=== PATIENT | female | born 1995 ===

== ENCOUNTER 2024-11-30 09:30 | Inpatient (IN) | payer OTHER ==
[~2024-11-30] VITALS: Ht 154.9 cm; Wt 68.9 kg
[2024-11-30] MEDS ORDERED: ZYRTEC10 M3 PO (12:08)
[2024-11-30] MEDS ORDERED: PEPCID AC20 MG (12:08)
[2024-11-30] MEDS ORDERED: VITAMIN D (12:08)
[2024-11-30 12:09] LABS: PH,URINE 5.5 (5.0-8.0); URINE APPEARANCE Cloudy; URINE BILIRRUBIN Negative (NEGATIVE); URINE BLOOD Large; URINE COLOR Yellow; URINE GLUCOSE Negative (NEGATIVE); URINE KETONE Negative (NEGATIVE); URINE LEUKOCYTE Negative; URINE NITRATE Negative; URINE PROTEIN 30 (NEGATIVE)
[2024-11-30 12:10] VITALS: BP 107/73
[2024-11-30 12:10] LABS: HEMATOCRIT 38.4 % (36.0-45.00); HEMOGLOBIN 12.7 g/dL (12.0-15.00); MEAN CELL VOLUME 75.7 fL (80.00-100.00); MEAN CORPUSCULAR HEMOGLOBIN 25.1 pg (27.00-32.0); MEAN CORPUSCULAR HGB CONC 33.2 g/dl (32.0-36.0); PLATELET COUNT 206 K/uL (150-450); RED BLOOD COUNT 5.07 M/uL (4.00-6.00); RED CELL DISTRIBUTION WIDTH 14.6 % (11.5-14.5)
[2024-11-30 12:13] VITALS: BP 105/73
[2024-11-30 12:15] LABS: URINE RBC 215.3 uL (0.0-20.8); URINE WBC 50.5 uL (0.0-23.2)
[2024-11-30 12:22] LABS: INR 1.03; PARTIAL THROMBOPLASTIN TIME 30.2 SECONDS (22.0-34.0); PROTHROMBIN TIME 11.2 SECONDS (9.0-11.5)
[2024-11-30 12:45] LABS: ALBUMIN 3.9 gm/dL (3.4-5.0); BILIRUBIN TOTAL 0.27 mg/dL (0.3-1.2); CREATININE SERUM 0.61 mg/dL (0.55-1.02); GFR 115.16; GLOBULINA 3.6 G/DL (2.4-3.5); POTASSIUM 3.76 mEq/L (3.5-5.1); TOTAL PROTEIN 7.5 gm/dL (6.4-8.2)
[2024-11-30 13:02] LABS: URINE BACTERIA > 9821.5 uL (0.0-1933); URINE EPITHELIAL CELLS > 201.7 uL (0.0-38.8)
[2024-12-04] MEDS ORDERED: POVIDONE-IODINE 118 ML BOTT TOP ONE (13:19)
[2024-12-04] MEDS ORDERED: CEFAZOLIN SODIUM 1,000 MG VIAL ONE (13:19)
[2024-12-04] MEDS ORDERED: CHLORHEXIDINE GLUCONATE 120 ML BOTTLE TOP ONE (13:20)
[2024-12-04] MEDS ORDERED: SUGAMMADEX SODIUM 200 MG/2 ML VIAL IV ONE (16:01)
[2024-12-04] MEDS ORDERED: MEPERIDINE HCL 25 MG/ML AMPUL IV ONE (16:35)
[2024-12-04] MEDS ORDERED: MEPERIDINE HCL/PF 50 MG/ML VIAL IM PRN (16:45)
[2024-12-04] MEDS ORDERED: RINGERS SOLUTION,LACTATED 1,000 ML IV SCH (16:45)
[2024-12-04] MEDS ORDERED: PROMETHAZINE HCL 50 MG/ML AMPUL IM PRN (16:45)
[2024-12-04] MEDS ORDERED: KETOROLAC TROMETHAMINE 30 MG VIAL IV SCH (17:29)
[2024-12-04] MEDS ORDERED: KETOROLAC TROMETHAMINE 30 MG VIAL ONE (17:41)
[2024-12-04] MEDS ORDERED: PROMETHAZINE HCL 50 MG/ML AMPUL IM ONE (18:12)
[2024-12-04 19:10] VITALS: BP 107/73
[2024-12-05 01:00] VITALS: BP 104/71
[2024-12-05 05:00] VITALS: BP 106/68
[2024-12-05 07:20] LABS: HEMOGLOBIN 11.6 g/dL (12.0-15.00); MEAN CORPUSCULAR HEMOGLOBIN 24.9 pg (27.00-32.0); MEAN CORPUSCULAR HGB CONC 33.3 g/dl (32.0-36.0); PLATELET COUNT 245 K/uL (150-450); RED BLOOD COUNT 4.67 M/uL (4.00-6.00); RED CELL DISTRIBUTION WIDTH 14.7 % (11.5-14.5)
[2024-12-05 08:37] VITALS: BP 103/71; O2SAT 98
[2024-12-05] MEDS ORDERED: OxyCODONE HCL/APAP UD (PERCOCET) PO PRN (10:00)
[2024-12-05 13:39] VITALS: BP 105/70
[2024-12-05 16:00] VITALS: BP 115/74
== END 2024-12-05 06:57 | disposition home or self-care (01) | DRG 743 ==
LOC: O/R 12-04 07:31 → OB/GYN 12-04 07:31 → SURH 12-04 09:30 → OB/GYN 12-04 16:53
PROVIDERS: ADMIT Obstetrics & Gynecology; ATTEND Obstetrics & Gynecology
PROC: 0UT70ZZ Resection of Bilateral Fallopian Tubes, Open Approach (ICD-10-PCS; 2024-12-04)
PROC: 0UT90ZZ Resection of Uterus, Open Approach (ICD-10-PCS; principal; 2024-12-04 13:15)
DX: Q51.3 Bicornate uterus (principal); Z90.710 Acquired absence of both cervix and uterus